=== PATIENT | female | born 1985 | race Caucasian/White ===

== ENCOUNTER 2021-02-28 22:05 | Inpatient (IN) | payer BC ==
[2021-02-28] MEDS ORDERED: Tranexamic Acid 1,000 MG in Sodium Chloride 0.9% 100 ML IV PRN (23:08)
[2021-02-28] MEDS ORDERED: Ondansetron 4 MG/2 ML SDV IVPUSH PRN ×2 (23:08→23:14)
[2021-02-28] MEDS ORDERED: Methylergonovine 0.2 MG/1 ML Amp IM PRN (23:08)
[2021-02-28] MEDS ORDERED: Lactated Ringers 1,000 ML IV ONE (23:08)
[2021-02-28] MEDS ORDERED: Carboprost Tromethamine 250 MCG/1 ML Amp IM PRN (23:08)
[2021-02-28] MEDS ORDERED: Misoprostol 400 MCG (4 X 100 MCG TAB) RECTAL PRN (23:08)
[2021-02-28] MEDS ORDERED: Lidocaine 1% 30 ML SDV INJECT PRN (23:08)
[2021-02-28] MEDS ORDERED: ePHEDrine 50 MG/ML SDV IVPUSH PRN (23:14)
[2021-02-28] MEDS ORDERED: Promethazine 25 MG/ML SDV IM PRN (23:14)
[2021-02-28] MEDS ORDERED: Naloxone 2 MG/2 ML Syringe IVPUSH PRN (23:14)
[2021-02-28] MEDS ORDERED: Oxytocin/Normal Saline 30 UNIT/500 ML BAG IV SCH (23:15)
[2021-02-28] MEDS ORDERED: Lactated Ringers 500 ML IV SCH ×2 (23:15)
[2021-02-28] MEDS ORDERED: Lactated Ringers 1,000 ML IV SCH (23:15)
[2021-02-28] MEDS ORDERED: Nalbuphine 10 MG/1 ML Vial IM PRN (23:17)
[2021-03-01] MEDS ORDERED: fentaNYL 100 MCG/2 ML SDV ONE (01:01)
[2021-03-01] MEDS ORDERED: fentaNYL 100 MCG/2 ML SDV IVPUSH STA (01:01)
[2021-03-01] MEDS ORDERED: Benzocaine/Menthol 20%-0.5% Spray 78 GM Cannister TOP PRN (02:06)
[2021-03-01] MEDS ORDERED: Simethicone 80 MG Tab.Chew PO PRN (02:06)
[2021-03-01] MEDS ORDERED: Zolpidem 5 MG Tab PO PRN (02:06)
[2021-03-01] MEDS ORDERED: Oxytocin 10 Units/1 ML SDV IM PRN (02:06)
[2021-03-01] MEDS: Ibuprofen 800 MG Tab PO PRN ×2 (02:31→15:41)
[2021-03-01] MEDS ORDERED: Witch Hazel Medicated Pads 100/Jar TOP PRN (02:32)
[2021-03-01] MEDS: Docusate Sodium 100 MG Cap PO PRN ×2 (06:22→21:33)
[2021-03-01] MEDS: Acetaminophen 325 MG Tab PO PRN ×2 (06:22→21:31)
[2021-03-01] MEDS: Prenatal Multivitamin with Calcium/Folic Acid/Iron Tab PO SCH (15:41)
[2021-03-02] MEDS: Ibuprofen 800 MG Tab PO PRN (06:21)
[2021-03-02] MEDS: Docusate Sodium 100 MG Cap PO PRN (09:41)
[2021-03-02] MEDS: Prenatal Multivitamin with Calcium/Folic Acid/Iron Tab PO SCH (09:41)
== END 2021-03-02 12:15 | disposition home or self-care (01) | DRG 560 ==
LOC: DL.OBCHECK 22:05 → DL.OB 23:03 → OBSVTOIN 03-01 01:44
PROVIDERS: ADMIT Family Medicine; ATTEND Family Medicine
PROC: 10E0XZZ Delivery of Products of Conception, External Approach (ICD-10-PCS; principal; 2021-03-01)
PROC: 10907ZC Drainage of Amniotic Fluid, Therapeutic from Products of Conception, Via Natural or Artificial Opening (ICD-10-PCS; 2021-03-01)
PROC: 0HQ9XZZ Repair Perineum Skin, External Approach (ICD-10-PCS; 2021-03-01)
DX: O24.424 Gestational diabetes mellitus in childbirth, insulin controlled (principal); Z37.0 Single live birth; O24.425 Gestational diabetes mellitus in childbirth, controlled by oral hypoglycemic drugs; O70.0 First degree perineal laceration during delivery; O99.284 Endocrine, nutritional and metabolic diseases complicating childbirth; E03.9 Hypothyroidism, unspecified; O43.123 Velamentous insertion of umbilical cord, third trimester; Z20.822 Contact with and (suspected) exposure to COVID-19; Z3A.38 38 weeks gestation of pregnancy; Z28.82 Immunization not carried out because of caregiver refusal
CPT/HCPCS: 36415; 59409; 82947; 85027; A9270-GY; J2590; J3010; J7120